=== PATIENT | male | born 1990 | race Caucasian/White ===

== ENCOUNTER 2016-09-25 17:49 | Emergency (ER) | payer OTHER ==
[2016-09-25] MEDS ORDERED: KETOROLAC 30 MG/1 ML VIAL IVP ONE (18:05)
[2016-09-25] MEDS ORDERED: Sodium Chloride 0.9% 1,000 ML PRIMARY IV ONE (18:05)
[2016-09-25] MEDS ORDERED: NORMAL SALINE 10 ML SYRINGE FLUSH IVP PRN (18:05)
[2016-09-25] MEDS ORDERED: HYDROmorphone 2 MG/1 ML IVP ONE ×2 (18:07→19:44)
[2016-09-25 18:40] LABS: BASOPHILS # (AUTO) 0.11 10*3/UL; EOSINOPHILS # (AUTO) 0.29 10*3/UL; EOSINOPHILS % (AUTO) 2.7 % (0-8); HEMATOCRIT 48.4 % (42.0-52.0); HEMOGLOBIN 16.7 g/dL (14.0-18.0); MEAN CORPUSCULAR HEMOGLOBIN 30.5 PG (27-31); MEAN CORPUSCULAR HGB CONC 34.5 g/dL (33-37); MEAN CORPUSCULAR VOLUME 88.3 FL (80-90); MEAN PLATELET VOLUME 8.2 FL (7.4-12.2); MONOCYTES % (AUTO) 8.2 % (5-15); NEUTROPHILS # (AUTO) 5.98 10*3/UL; NEUTROPHILS % (AUTO) 54.8 % (50-80); PLATELET MORPHOLOGY COMMENT NORMAL MORPHOLOGY (NORM); RBC MORPHOLOGY COMMENT NORMAL MORPHOLOGY (NORM); RED BLOOD COUNT 5.48 10^6/uL (4.70-6.10); WBC MORPHOLOGY COMMENT NORMAL MORPHOLOGY (NORM)
[2016-09-25 18:46] LABS: BLOOD UREA NITROGEN 12 mg/dL (7-22); CALCIUM 9.5 mg/dL (8.7-10.7); EST GLOMERULAR FILTRATION > 60 (>60 ml/min/1.73m(2)); SERUM ALBUMIN 4.3 g/dL (3.5-4.8)
[2016-09-25 19:44] LABS: BILIRUBIN,URINE NEGATIVE (NEG); COLOR,URINE YELLOW; GLUCOSE, URINE (UA) NEGATIVE (NEG); NITRATE,URINE NEGATIVE (NEG); OCCULT BLOOD,URINE NEGATIVE (NEG); PH,URINE 5.5 (5.0-8.5); PROTEIN,URINE NEGATIVE (NEG); UROBILINOGEN,URINE 0.2 EU/dL (0.2)
[2016-09-25 19:45] LABS: CLARITY,URINE CLEAR (CLEAR); URINE SAMPLE TYPE CLEAN CATCH URINE
[2016-09-25] MEDS ORDERED: KETOROLAC 10 MG TABLET PO SCH (20:30)
[2016-09-25] MEDS ORDERED: CYCLOBENZAPRINE 10 MG TABLET PO SCH ×2 (20:30)
--- NOTE | 2016-09-25 20:59 | PDOC ---
Back Pain / Injury HPI - General Chief Complaint: Neck / Back Complaint Stated Complaint: LEFT FLANK PAIN Date Seen by Provider: 09/25/16 Time Seen by Provider: 17:52 Source: Patient Exam Limitations: POSITIVE: No limitations Nurse's Notes Reviewed & Considered: Yes - History of Present Illness Initial Comments: The patient is a 26-year-old male. He presents to the emergency room with a 2 day history of left flank and left paralumbar pain. 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 He states he has a history of passing kidney stones in the past. He denies any discrete trauma. No dysuria or hematuria. No fevers. No radicular symptoms or sensory or motor symptoms. Pain was exacerbated while he was fishing this afternoon. Body Location Affected: REPORTS: Back (Left flank and paralumbar area) Timing: REPORTS: Abrupt Duration: >24 hours (2 days) Severity: Moderate Quality: REPORTS: "Pain" Context: REPORTS: Lifting, Turning, Bending Location at Time of Onset: REPORTS: Work Modifying Factors: improves with: Nothing Associated Symptoms: REPORTS: Back pain, Nausea Similar Symptoms Previously: Yes (previous "kidney stone"pain was similar, patient states.) Recent Care Received: REPORTS: Denies Any Prior Injuries Related to Current Complaint?: Yes (possibly, as above.) - Patient Home Medications Home Medications: Home Medications Cyclobenzaprine HCl [Flexeril] 10 mg PO Q8H #21 tab 09/25/16 Ketorolac Tromethamine [Toradol] 10 mg PO Q6H PRN #20 tablet 09/25/16 Quetiapine Fumarate [Seroquel] 100 mg PO DAILY 09/25/16 traZODone Tab [Desyrel Tab] 50 mg PO BEDTIME 09/25/16 - Patient Allergies Allergies/Adverse Reactions: Allergies Allergy/AdvReac Type Severity Reaction Status Date / Time No Known Allergies Allergy Verified 09/25/16 20:01 Past Medical History - heen HEENT History: Chipped or Loose Teeth Additional HEENT History: TOP AND BOTTOM FRONT TEETH CHIPPED Cardiovascular History: Denies History Respiratory History: Denies History Gastrointestinal History: Denies History Genitourinary History: Denies History Endocrine History: Denies History Musculoskeletal History: Denies History Neurological History: Denies History Blood Disorders: Denies History Psychiatric History: Denies History Cancer History: Denies History History of MDRO: No Alcohol Use: Occasionally Substance Use Type: None Previous Surgical History: Yes Type / Date of Surgery: LEFT KNEE SCOPE Anesthesia Reactions: No Malignant Hyperthermia: No Significant Family History: No pertinent family hx Past Medical History Reviewed: Reviewed - No Changes ROS - Limitations ROS Limitations: No Limitations Constitution: REPORTS: Denies Symptoms Cardiovascular: REPORTS: Denies Cardiac Symptoms Respiratory: REPORTS: Denies Resp Symptoms Neurological: REPORTS: Denies Neuro Symptoms Gastrointestinal: REPORTS: Denies GI Symptoms Endocrine: REPORTS: Denies Symptoms Musculoskeletal: REPORTS: Back Pain (Left flank and paralumbar pain.) Genitourinary: REPORTS: Flank Pain (Left) Eyes: REPORTS: Denies Symptoms ENT: REPORTS: Denies Symptoms Skin: REPORTS: Denies Skin Symptoms Lympathic: REPORTS: Denies Lympathic Symptoms Immunologic: POSITIVE: Denies Symptoms Psychiatric: POSITIVE: Denies Psych Symptoms Back Physical Assessment - General Appearance General Appearance: REPORTS: Alert, Cooperative, No Evidence of Trauma, Mild Distress (Due to low back pain on left). DENIES: No Acute Distress - HEENT HEENT: POSITIVE: Head Inspection Nml, Eyes Inspection Nml, Ears Inspection Nml, Nose Inspection Nml, Oral/Dental Inspect. Nml, Pharynx Inspect. Nml, PERRL, EOMI - Pupil Size Pupil Size: 3 mm: Bilateral (PERRLA) - Neck Neck: POSITIVE: Non Tender, Painless ROM, Trachea Midline, Nexus Criteria Negative - Respiratory / CVS Respiratory / CVS: POSITIVE: Chest Non Tender, No Ecchymosis, Breath Sounds Normal, No Respiratory Distress, Heart Sounds Normal, Regular Rate/Rhythm - Abdomen Abdomen: Soft: (All Quadrants), Normal Bowel Sounds: (All Quadrants), Denies Tenderness: (All Quadrants), No Splenomegaly: (All Quadrants), No Hepatomegaly: (All Quadrants), No Guarding: (All Quadrants), No Rebound: (All Quadrants), No Palpable Pulse: (All Quadrants), No Palpabale Mass: (All Quadrants), No Distention: (All Quadrants), No Rigidity: (All Quadrants) - Back Back: REPORTS: CVA Tenderness (L), Muscle Spasm (Left paralumbar area), Limited ROM (Flexion and extension uncomfortable; some left paralumbar spasm), See Diagram. DENIES: No Vertebral Tenderness, Vertebral Pt. 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 Lumbosacral spine normal. Lab Results Reviewed: Yes Lab Results:: Laboratory Results 09/25/16 09/25/16 Range/Units 18:35 19:45 WBC 10.91 H (4.8-10.8) 10^3/uL RBC 5.48 (4.70-6.10) 10^6/uL Hgb 16.7 (14.0-18.0) g/dL Hct 48.4 (42.0-52.0) % MCV 88.3 (80-90) FL MCH 30.5 (27-31) PG MCHC 34.5 (33-37) g/dL RDW Std Deviation 42.5 (39-50) fL RDW Coeff of [place] 13.1 (11.5-14.5) % Plt Count 241 (140-350) 10*3/uL MPV 8.2 (7.4-12.2) FL Immature Gran % (Auto) 0.3 (0-5) % Neut % (Auto) 54.8 (50-80) % Lymph % (Auto) 33.0 (10-50) % [place] % (Auto) 8.2 (5-15) % Eos % (Auto) 2.7 (0-8) % Baso % (Auto) 1.0 (0-1) % Immature Gran # (Auto) 0.03 10*3/UL Neut # (Auto) 5.98 10*3/UL Lymph # (Auto) 3.60 10*3/uL [place] # (Auto) 0.90 H (0.3-0.8) 10*3/UL Eos # (Auto) 0.29 10*3/UL Baso # (Auto) 0.11 10*3/UL WBC Morphology Comment Normal morphology (NORM) Plt Morphology Comment Normal morphology (NORM) RBC Morph Comment Normal morphology (NORM) Sodium 142 (135-145) meq/L Potassium 4.0 (3.8-5.2) meq/L Chloride 110 (98-112) meq/L Carbon Dioxide 21 L (23-33) meq/L Anion Gap 11 (5-20) BUN 12 (7-22) mg/dL Creatinine 1.0 (0.70-1.50) mg/dL Estimated GFR > 60 (>60 ml/min/1.73m(2)) BUN/Creatinine Ratio 12.00 (6-20) Glucose 104 (78-110) mg/dL Calculated Osmolality 293.0 H (267-292) mOsm/kg Calcium 9.5 (8.7-10.7) mg/dL Total Bilirubin 0.4 (0.3-1.2) mg/dL AST 29 (21-57) IU/L ALT 25 (21-72) IU/L Alkaline Phosphatase 102 (38-126) IU/L Total Protein 7.6 (6.1-8.0) g/dL Albumin 4.3 (3.5-4.8) g/dL Globulin 3.3 (2.50-4.10) g/dL Albumin/Globulin Ratio 1.30 (1.3-2.0) mg/g Ur Collection Type Clean catch urine Urine Color Yellow Urine Clarity Clear (CLEAR) Urine pH 5.5 (5.0-8.5) Ur Specific [place] 1.010 (1.005-1.030) Urine Protein Negative (NEG) mg/dl Urine Glucose (UA) Negative (NEG) mg/dL Urine Ketones Negative (NEG) Urine Occult Blood Negative (NEG) Urine Nitrate Negative (NEG) Urine Bilirubin Negative (NEG) Urine Urobilinogen 0.2 (0.2) EU/dL Ur Leukocyte Esterase Negative (NEG) Ur Culture Indicated? Culture not set - Patient's Progress Pain Medication Addressed: POSITIVE: Yes (Toradol, 60 mg IV; Dilaudid, 2 mg IV followed later by another milligram IV) School/Work Release Addressed: POSITIVE: Yes (No work tomorrow. May try to go back to work Tuesday) Re-Examine Time: 20:05 Re-Examine Comment: Some pain relief upon discharge. Status: POSITIVE: Improved, Re-Examined - Consult Counseled: POSITIVE: Patient, RE: Lab Results, RE: Radiology Results, RE: DX, RE : Need for F/U Patient Care Time - Estimated PCT Patient Care Time (In Minutes): 48 Vital Signs - Recent Vital Signs Vital Signs: Blood pressure 142/99, heart rate 117, respiratory rate 18, temperature 97.6F, oxygen saturation 96% - VS Reviewed Vital Signs Reviewed: Yes Discharge Clinical Impression: Strain, lumbosacral Discharge Disposition: Discharged to Home Condition: Good Prescriptions / Orders: Cyclobenzaprine HCl [Flexeril] 10 mg PO Q8H #21 tab Ketorolac Tromethamine [Toradol] 10 mg PO Q6H PRN #20 tablet PRN Reason: Pain Patient Instructions Given at Discharge: Low Back Strain (ED) Additional Instructions: Rest tomorrow. You can try returning to work Tuesday. Warm moist compresses to your lower back every 4-6 hours. Flexeril, one every 8 hours. Toradol, one every 6 hours as necessary for pain. There is no evidence of ureteral stones. Follow-up with your primary care provider. Return here anytime if condition worsens, or as necessary. Follow Up With: NONE,NONE [Primary Care Provider] - (Instructions as above. Follow-up with your primary care provider. Return here as necessary.)
[2016-09-25 21:14] VITALS: RESP 18; TEMP 97.6
== END 2016-09-25 20:48 | disposition home or self-care (01) ==
LOC: ER 17:49
DX: S39.012A Strain of muscle, fascia and tendon of lower back, initial encounter (principal); M54.5 Low back pain; R11.0 Nausea; X50.0XXA Overexertion from strenuous movement or load, initial encounter; Y93.H3 Activity, building and construction; Y99.0 Civilian activity done for income or pay
CPT/HCPCS: 74177; 80053; 81003; 85025; 96374; 96375; 96376; 99282; 99283; J1885; J1170; J7030